=== PATIENT | male | born 1995 | race African-American/Black ===

== ENCOUNTER 2025-03-01 10:50 | Inpatient (IN) ==
[2025-03-01] MEDS ORDERED: KETAMINE HCL ONE (12:00)
[2025-03-01 13:09] VITALS: BMI 30.5
[2025-03-01 13:21] LABS: MEAN PLATELET VOLUME 9.8 fL (7.4-11.0); RED CELL DISTRIBUTION WIDTH 13.9 % (11.6-16.5)
[2025-03-01 13:22] LABS: BLOOD/HEMOGLOBIN,URINE 2+ (NEGATIVE); LEUKOCYTE ESTERASE ,URINE 1+ (NEGATIVE); NITRITES,URINE NEGATIVE (NEGATIVE)
[2025-03-01 13:36] LABS: CREATININE 1.10 mg/dL (0.70-1.30); eGFR NON BLACK RACES > 60 (>60)
[2025-03-01 13:36] LABS: APPEARANCE,URINE SLIGHTLY HAZY (CLEAR); SQUAMOUS EPITHELIAL CELL,UR RARE /HPF (NEGATIVE)
[2025-03-01] MEDS: OMNIPAQUE 350 mg/mL 100 mL BTL IVP NR (14:26)
--- NOTE | 2025-03-01 14:49 | CT ---
EXAM: CT MAXILLOFACIAL WITH IV CONTRAST HISTORY: jaw swelling x4 days, abcess; COMPARISON: None available TECHNIQUE: Axial CT images were obtained through the maxillofacial with IV contrast. Coronal and sagittal reformatted images were included. All CT scans at this facility use dose modulation, iterative reconstruction, and/or weight based dosing when appropriate to reduce radiation dose to as low as reasonably achievable. FINDINGS: In the midline and left pre mandibular subcutaneous soft tissues, there is a heterogeneous rim enhancing collection that measures approximately 3.8 x 1.5 cm with extensive surrounding soft tissue edema and enhancement. No soft tissue gas. No focal cortical destruction or aggressive periosteal reaction. No significant dental caries or periodontal disease. Small frontal sinus mucous retention cyst. Mild ethmoid sinus mucosal thickening. Intraorbital contents and visualized intracranial contents are unremarkable. Mastoid air cells are well-aerated. Major vascular structures in the visualized neck are normally opacified. Nonspecific symmetric cervical chain lymph nodes are likely reactive. IMPRESSION: Midline and left pre mandibular irregular heterogeneous 3.8 x 1.5 cm abscess with surrounding cellulitis. No soft tissue gas. THIS IS AN ELECTRONICALLY VERIFIED FINAL REPORT 03/01/2025 2:45 PM - Electronically signed by Dl Zavala MD
[2025-03-01] MEDS: NS 1,000 ML IV 1,000 ML IV SCH (15:00)
[2025-03-01] MEDS: INVanz INJ 1 GRAM VIAL 1 G in NS 100 ML IV 100 ML IV SCH (15:00)
[2025-03-01] MEDS: ULTRAM PO PRN (15:01)
[2025-03-01] MEDS: VANCOMYCIN IV *PREMIX 1.25 G/250 ML BAG 1.25 G/250 ML PIGGYBACK IV SCH (16:09)
[2025-03-01] MEDS: OMNIPAQUE 350 mg/mL 100 mL BTL 100 ML ONE (16:46)
[2025-03-01] MEDS: CONSULT PHARMACY - POTASSIUM & MAGNESIUM XX SCH (20:37)
[2025-03-01] MEDS: VANCOMYCIN IV *PREMIX 1 G/200 ML BAG 1 G/200 ML PIGGYBACK IV SCH (20:37)
[2025-03-02] MEDS: VANCOMYCIN IV *PREMIX 1.25 G/250 ML BAG 1.25 G/250 ML PIGGYBACK IV SCH (03:22)
[2025-03-02 04:51] LABS: MEAN PLATELET VOLUME 9.5 fL (7.4-11.0); RED CELL DISTRIBUTION WIDTH 13.7 % (11.6-16.5)
[2025-03-02 05:07] LABS: COR CA(FOR HYPOALB) 9.7 mg/dL (8.5-10.1); CREATININE 1.11 mg/dL (0.70-1.30); eGFR NON BLACK RACES > 60 (>60)
--- NOTE | 2025-03-02 08:28 | DR.H&P ---
H&P History & Physical for Day of: H&P Date: 03/01/25 Chief Complaint Chief Complaint: infected bump on chin History of Present Illness History of Present Illness: PT IS 20 BM, DIRECT ADMIT FROM FOR CELLULITIS WITH SUSPECTED ABSCESS FORMATION TO CHIN. PT WAS ON PO [facility]AMYCIN [facility]. PT REPORTS ONSET WAS PIMPLE ON CHIN FEW DAYS AGO. PT DENIES ANY PMH OF DM OR HTN. PT REPORTS NO HX OF MRSA. PT ADMITTED FOR EVALUATION AND TREATMET OF ACUTE ILLNESS Past Surgical History Surgical History: No History Social History Alcohol Use: None Drug Use: None Medications Home Medications: Home Medications Medication Instructions Recorded Confirmed Type clindamycin HCl 300 mg capsule 300 mg PO TID 03/01/25 03/01/25 History Allergies Allergies Allergy/AdvReac Type Severity Reaction Status Date / Time Penicillins Allergy Verified 03/01/25 13:11 Labs 03/02/25 04:36 03/02/25 04:36 Labs: 03/01/25 12:38 Face Wound Gram Stain - Final Laboratory WBC 12.4 X10^3/uL (3.6-10.0) H 03/02/25 04:36 RBC 4.93 X10^6/uL (4.7-6.0) 03/02/25 04:36 Hgb 14.6 g/dL (13.5-18.0) 03/02/25 04:36 Hct 43.0 % (42.0-54.0) 03/02/25 04:36 MCV 87.3 fL (80.0-100.0) 03/02/25 04:36 MCH 29.6 pg (27.0-34.0) 03/02/25 04:36 MCHC 33.9 g/dL (33.0-35.0) 03/02/25 04:36 RDW 13.7 % (11.6-16.5) 03/02/25 04:36 Plt Count 205 X10^3/uL (150.0-450.0) 03/02/25 04:36 MPV 9.5 fL (7.4-11.0) 03/02/25 04:36 Neut % (Auto) 72.9 % (42.0-75.0) 03/02/25 04:36 Lymph % (Auto) 13.5 % (21.0-51.0) L 03/02/25 04:36 [place] % (Auto) 12.6 % (0.0-13.0) 03/02/25 04:36 Eos % (Auto) 0.6 % (0.9-2.9) L 03/02/25 04:36 Baso % (Auto) 0.4 % (0.2-1.0) 03/02/25 04:36 Neut # (Auto) 9.0 x10^3/uL (2.2-4.8) H 03/02/25 04:36 Lymph # (Auto) 1.7 X10^3/uL (1.3-2.9) 03/02/25 04:36 [place] # (Auto) 1.6 x10^3/uL (0.3-0.8) H 03/02/25 04:36 Eos # (Auto) 0.1 x10^3/uL (0.0-0.2) 03/02/25 04:36 Baso # (Auto) 0.1 X10^3/uL (0.0-0.1) 03/02/25 04:36 Absolute Nucleated RBC 0.0 /100WBC 03/02/25 04:36 Sodium 136 mmol/L (136-145) 03/02/25 04:36 Corrected Sodium TNP 03/02/25 04:36 Potassium 4.2 mmol/L (3.5-5.1) 03/02/25 04:36 Chloride 101 mmol/L (98-107) 03/02/25 04:36 Carbon Dioxide 25.8 mmol/L (21-32) 03/02/25 04:36 BUN 10 mg/dL (7-18) 03/02/25 04:36 Creatinine 1.11 mg/dL (0.70-1.30) 03/02/25 04:36 Est GFR (MDRD) Af Amer > 60 (>60) 03/02/25 04:36 Est GFR (MDRD) Non-Af > 60 (>60) 03/02/25 04:36 Glucose 97 mg/dL (65-99) 03/02/25 04:36 Lactic Acid 0.9 mmol/L (0.4-2.0) 03/01/25 12:43 Calcium 8.8 mg/dL (8.5-10.1) 03/02/25 04:36 Corrected Calcium 9.7 mg/dL (8.5-10.1) 03/02/25 04:36 Total Bilirubin 0.80 mg/dL (0.2-1.0) 03/02/25 04:36 AST 17 Units/L (15-37) 03/02/25 04:36 ALT 21 Units/L (12-78) 03/02/25 04:36 Alkaline Phosphatase 56 Units/L (46-116) 03/02/25 04:36 Total Protein 7.5 g/dL (6.4-8.2) 03/02/25 04:36 Albumin 2.9 g/dL (3.4-5.0) L 03/02/25 04:36 Globulin 4.6 g/dL (2.5-4.5) H 03/02/25 04:36 Albumin/Globulin Ratio 0.6 Ratio (1.1-2.1) L 03/02/25 04:36 Specimen Type Clean catch urine 03/01/25 13:12 Urine Color Dark yellow (YELLOW) 03/01/25 13:12 Urine Appearance Slightly hazy (CLEAR) 03/01/25 13:12 Urine pH 6.0 (5.0 - 8.0) 03/01/25 13:12 Ur Specific [place] 1.020 (1.000-1.030) 03/01/25 13:12 Urine Protein 2+ (NEGATIVE) 03/01/25 13:12 Urine Glucose (UA) Negative (NEGATIVE) 03/01/25 13:12 Urine Ketones 4+ (NEGATIVE) 03/01/25 13:12 Urine Blood 2+ (NEGATIVE) 03/01/25 13:12 Urine Nitrite Negative (NEGATIVE) 03/01/25 13:12 Urine Bilirubin 1+ (NEGATIVE) 03/01/25 13:12 Urine Urobilinogen 3+ (NORMAL) 03/01/25 13:12 Ur Leukocyte Esterase 1+ (NEGATIVE) 03/01/25 13:12 Urine RBC 0-2 /HPF (0-3) 03/01/25 13:12 Urine WBC 3-5 /HPF (0-5) 03/01/25 13:12 Ur Squamous Epith Cells Rare /HPF (NEGATIVE) 03/01/25 13:12 Urine Bacteria Trace /HPF (NEGATIVE) 03/01/25 13:12 Urine Mucus Moderate /HPF (NEGATIVE) 03/01/25 13:12 Ur Culture Indicated? No/not indicated 03/01/25 13:12 Review of Systems Constitutional: No Symptoms Reported Eyes: No Symptoms Reported ENT: Mouth Swelling (LOWER LIP) and Other Respiratory: No Symptoms Reported Cardiovascular: No Symptoms Reported Gastrointestinal: No Symptoms Reported Genitourinary: No Symptoms Reported Musculoskeletal: No Symptoms Reported Skin: Wound Neurological: No Symptoms Reported Physical Exam Vital Signs: Vital Signs Temperature 98.7 F Temperature 98.6 F Pulse Rate [Right Brachial] 94 Pulse Rate [Right Brachial] 90 Respiratory Rate 17 Respiratory Rate 18 Blood Pressure [Right Arm] 133/71 Blood Pressure [Right Arm] 126/64 O2 Sat by Pulse Oximetry 97 O2 Sat by Pulse Oximetry 96 Oriented: Normal Eyes: Normal Ear: Normal Nose: Normal Throat: Normal Respiratory: Clear Throughout Cardiovascular: Normal Auscultation: Bowel Sounds: Normal Palpation: Normal Tenderness: Normal Skin: Red, Tender, Wound (CHIN, THICK PURULENT DC) and Other Musculoskeletal: Normal Psychiatric: Normal Mood Description: Calm Affect: Normal Speech Pattern: Clear and Appropriate Assessment/Plan (1) Facial cellulitis: Status: Acute Plan: ADMIT, CT FACE ON ADMISSION IV ATBX, WOUND CARE WOUND CULTURE, VERIFY HOME MEDICATIONS (2) Abscess or cellulitis of chin: Status: Acute
--- NOTE | 2025-03-02 08:31 | PCM.PROG ---
Progress Note Progress Note for Day of Date of Exam: 03/02/25 Subjective Subjective: PT IS 30 BM, ADMITTED WITH CELLULITIS TO HIS CHIN WITH DIFFUSE REDNESS AND SWELLING. FAILED OUTPT TREATMENT WIT CLINDAMYCIN. ABSCESS CONFIRMED WITH CT ON ADMISSION. CULTURES OBTAINED ON ADMISSION. PT IS CURRENTLY ON VANCO AND ERTAPENEM. PT IS AFEBRILE AND BP STABLE. PT CO PAIN TO AREA NOT CONTROLLED WITH TRAMADOL. PT REPORTS HE CANNOT OPEN HIS MOUTH DUE TO PAIN TO CHIN LOWER JAW. SURGICAL CONSULT FOR I&OS. SLIGHT IMPROVING SWELLING SINCE ADMISSION WITH THICK PURULENT DC. Past Medical Family Social History Allergies: Allergies Penicillins Allergy (Verified 03/01/25 13:11) Vital Signs and I&O's Vital Signs: Vital Signs Temperature 98.7 F Temperature 98.6 F Pulse Rate [Right Brachial] 94 Pulse Rate [Right Brachial] 90 Respiratory Rate 17 Respiratory Rate 18 Blood Pressure [Right Arm] 133/71 Blood Pressure [Right Arm] 126/64 O2 Sat by Pulse Oximetry 97 O2 Sat by Pulse Oximetry 96 Intake and Output: Intake & Output 02/27/25 02/28/25 03/01/25 03/02/25 11:59 11:59 11:59 11:59 Intake Total 1813 / 1813 Output Total 1050 / 1050 Balance 763 / 763 Physical Exam Oriented: Normal Eyes: Normal Ear: Normal Nose: Normal Throat: Normal Respiratory: Normal Cardiovascular: Normal Auscultation: Bowel Sounds: Normal Tenderness: Normal Skin: Red, Tender, Wound (CHIN, THICK PURULENT DC) and Other Musculoskeletal: Normal Psychiatric: Normal Mood Description: Calm Affect: Normal Speech Pattern: Clear and Appropriate Laboratory and Diagnostics 03/02/25 04:36 03/02/25 04:36 Labs: 03/01/25 12:38 Face Wound Gram Stain - Final Laboratory WBC 12.4 X10^3/uL (3.6-10.0) H 03/02/25 04:36 RBC 4.93 X10^6/uL (4.7-6.0) 03/02/25 04:36 Hgb 14.6 g/dL (13.5-18.0) 03/02/25 04:36 Hct 43.0 % (42.0-54.0) 03/02/25 04:36 MCV 87.3 fL (80.0-100.0) 03/02/25 04:36 MCH 29.6 pg (27.0-34.0) 03/02/25 04:36 MCHC 33.9 g/dL (33.0-35.0) 03/02/25 04:36 RDW 13.7 % (11.6-16.5) 03/02/25 04:36 Plt Count 205 X10^3/uL (150.0-450.0) 03/02/25 04:36 MPV 9.5 fL (7.4-11.0) 03/02/25 04:36 Neut % (Auto) 72.9 % (42.0-75.0) 03/02/25 04:36 Lymph % (Auto) 13.5 % (21.0-51.0) L 03/02/25 04:36 [place] % (Auto) 12.6 % (0.0-13.0) 03/02/25 04:36 Eos % (Auto) 0.6 % (0.9-2.9) L 03/02/25 04:36 Baso % (Auto) 0.4 % (0.2-1.0) 03/02/25 04:36 Neut # (Auto) 9.0 x10^3/uL (2.2-4.8) H 03/02/25 04:36 Lymph # (Auto) 1.7 X10^3/uL (1.3-2.9) 03/02/25 04:36 [place] # (Auto) 1.6 x10^3/uL (0.3-0.8) H 03/02/25 04:36 Eos # (Auto) 0.1 x10^3/uL (0.0-0.2) 03/02/25 04:36 Baso # (Auto) 0.1 X10^3/uL (0.0-0.1) 03/02/25 04:36 Absolute Nucleated RBC 0.0 /100WBC 03/02/25 04:36 Sodium 136 mmol/L (136-145) 03/02/25 04:36 Corrected Sodium TNP 03/02/25 04:36 Potassium 4.2 mmol/L (3.5-5.1) 03/02/25 04:36 Chloride 101 mmol/L (98-107) 03/02/25 04:36 Carbon Dioxide 25.8 mmol/L (21-32) 03/02/25 04:36 BUN 10 mg/dL (7-18) 03/02/25 04:36 Creatinine 1.11 mg/dL (0.70-1.30) 03/02/25 04:36 Est GFR (MDRD) Af Amer > 60 (>60) 03/02/25 04:36 Est GFR (MDRD) Non-Af > 60 (>60) 03/02/25 04:36 Glucose 97 mg/dL (65-99) 03/02/25 04:36 Lactic Acid 0.9 mmol/L (0.4-2.0) 03/01/25 12:43 Calcium 8.8 mg/dL (8.5-10.1) 03/02/25 04:36 Corrected Calcium 9.7 mg/dL (8.5-10.1) 03/02/25 04:36 Total Bilirubin 0.80 mg/dL (0.2-1.0) 03/02/25 04:36 AST 17 Units/L (15-37) 03/02/25 04:36 ALT 21 Units/L (12-78) 03/02/25 04:36 Alkaline Phosphatase 56 Units/L (46-116) 03/02/25 04:36 Total Protein 7.5 g/dL (6.4-8.2) 03/02/25 04:36 Albumin 2.9 g/dL (3.4-5.0) L 03/02/25 04:36 Globulin 4.6 g/dL (2.5-4.5) H 03/02/25 04:36 Albumin/Globulin Ratio 0.6 Ratio (1.1-2.1) L 03/02/25 04:36 Specimen Type Clean catch urine 03/01/25 13:12 Urine Color Dark yellow (YELLOW) 03/01/25 13:12 Urine Appearance Slightly hazy (CLEAR) 03/01/25 13:12 Urine pH 6.0 (5.0 - 8.0) 03/01/25 13:12 Ur Specific [place] 1.020 (1.000-1.030) 03/01/25 13:12 Urine Protein 2+ (NEGATIVE) 03/01/25 13:12 Urine Glucose (UA) Negative (NEGATIVE) 03/01/25 13:12 Urine Ketones 4+ (NEGATIVE) 03/01/25 13:12 Urine Blood 2+ (NEGATIVE) 03/01/25 13:12 Urine Nitrite Negative (NEGATIVE) 03/01/25 13:12 Urine Bilirubin 1+ (NEGATIVE) 03/01/25 13:12 Urine Urobilinogen 3+ (NORMAL) 03/01/25 13:12 Ur Leukocyte Esterase 1+ (NEGATIVE) 03/01/25 13:12 Urine RBC 0-2 /HPF (0-3) 03/01/25 13:12 Urine WBC 3-5 /HPF (0-5) 03/01/25 13:12 Ur Squamous Epith Cells Rare /HPF (NEGATIVE) 03/01/25 13:12 Urine Bacteria Trace /HPF (NEGATIVE) 03/01/25 13:12 Urine Mucus Moderate /HPF (NEGATIVE) 03/01/25 13:12 Ur Culture Indicated? No/not indicated 03/01/25 13:12 Plan (1) Facial cellulitis: Status: Acute Plan: CT FACE ON ADMISSION, SURGICAL CONSULT IV ATBX, WOUND CARE WOUND CULTURE, VERIFY HOME MEDICATIONS (2) Abscess or cellulitis of chin: Status: Acute
[2025-03-02] MEDS: TORADOL 30 MG VIAL IVP PRN (08:49)
[2025-03-02] MEDS ORDERED: NORCO 7.5/325 MG TAB ONE (13:02)
[2025-03-02] MEDS: NORCO 7.5/325 MG TAB PO ONE (13:04)
[2025-03-02] MEDS: VERSED ONE (13:30)
[2025-03-02] MEDS: FENTANYL VIAL INJ 100 mcg ONE (13:30)
[2025-03-02] MEDS: DIPRIVAN VIAL 20 ML ONE (13:31)
[2025-03-02] MEDS: REGLAN INJ 10 MG VIAL ONE (13:31)
[2025-03-02] MEDS: ZOFRAN INJ 4 MG VIAL ONE (13:31)
[2025-03-02] MEDS: PRECEDEX INJ VIAL ONE (13:35)
[2025-03-02] MEDS: NS 100 ML IV 100 ML ONE (13:54)
[2025-03-02] MEDS: ANCEF VIAL 1 GRAM ONE (13:54)
[2025-03-02] MEDS: VERSED IVP PRN (13:59)
[2025-03-02] MEDS: PEPCID 20 MG VIAL IVP PRN (14:00)
[2025-03-02] MEDS: ZOFRAN INJ 4 MG VIAL IVP PRN (14:00)
[2025-03-02] MEDS: REGLAN INJ 10 MG VIAL IVP PRN (14:00)
[2025-03-02] MEDS: D5 LR IV PRN (14:00)
[2025-03-02] MEDS: PEPCID 20 MG VIAL ONE (14:02)
[2025-03-02] MEDS: LR 1,000 ML IV 1,000 ML IV ONE (14:02)
[2025-03-02] MEDS: BETADINE SOLN ONE (14:15)
[2025-03-02] MEDS: ANCEF VIAL 1 GRAM IV PRN (14:15)
[2025-03-02] MEDS: FENTANYL VIAL INJ 100 mcg IVP PRN (14:16)
[2025-03-02] MEDS: XYLOCAINE 2 % (PLAIN) IVP PRN (14:17)
[2025-03-02] MEDS: DIPRIVAN VIAL 50 ML IVP PRN (14:18)
[2025-03-02] MEDS: KETAMINE HCL IV PRN (14:18)
[2025-03-02] MEDS: MARCAINE 0.5% ONE (14:24)
[2025-03-02] MEDS: POLYMYXIN B SULFATE ONE (14:24)
[2025-03-02] MEDS: PHARMACY COMMENT IV NR (20:30)
[2025-03-03] MEDS: ULTRAM PO PRN (00:02)
[2025-03-03 05:00] LABS: MEAN PLATELET VOLUME 9.4 fL (7.4-11.0); RED CELL DISTRIBUTION WIDTH 13.6 % (11.6-16.5)
[2025-03-03 05:10] LABS: COR CA(FOR HYPOALB) 9.5 mg/dL (8.5-10.1); CREATININE 1.00 mg/dL (0.70-1.30); eGFR NON BLACK RACES > 60 (>60)
[2025-03-03] MEDS: NYSTATIN SUSP PO SCH (10:34)
--- NOTE | 2025-03-03 11:14 | DR.PROGNOT ---
HOSPITAL PROGRESS NOTE Progress Note for Day of: Progress Note Date: 03/03/25 Chief Complaint Chief Complaint: Patient is status post incision and drainage of facial abscess, final culture report is showing MRSA infection. Patient is on vancomycin already. Good improvement of the swelling and pain. Dressing was changed and repacked with iodoform packing. CBC and the rest of his lab work is normal. Vancomycin level is therapeutic. The rest of physical exam is the same as before. Past Medical Family Social History Allergies: Allergies Penicillins Allergy (Verified 03/01/25 13:11) Vital Signs Vital Signs: Vital Signs Temperature 97.1 F Temperature 98.6 F Pulse Rate [Right Brachial] 72 Pulse Rate [Right Brachial] 78 Respiratory Rate 18 Respiratory Rate 18 Blood Pressure [Right Arm] 102/58 Blood Pressure [Right Arm] 115/67 O2 Sat by Pulse Oximetry 98 O2 Sat by Pulse Oximetry 98 Physical Exam Oriented: Normal Eyes: Normal Ear: Normal Nose: Normal Throat: Normal Respiratory: Normal Cardiovascular: Normal GI:Auscultation: Normal GI:Palpation: Normal GI: Tenderness: Normal Skin: Red, Tender, Wound (CHIN, THICK PURULENT DC) and Other Musculoskeletal: Normal Psychiatric: Normal Mood Description: Calm Affect: Normal Speech Pattern: Clear Laboratory and Diagnostics 03/03/25 04:28 03/03/25 04:28 Labs: 03/01/25 12:38 Face Wound Gram Stain - Final 03/01/25 12:38 Face Wound Culture - Preliminary Methicillin Resis Staph Aureus Laboratory WBC 7.0 X10^3/uL (3.6-10.0) 03/03/25 04:28 RBC 4.95 X10^6/uL (4.7-6.0) 03/03/25 04:28 Hgb 14.5 g/dL (13.5-18.0) 03/03/25 04:28 Hct 43.4 % (42.0-54.0) 03/03/25 04:28 MCV 87.8 fL (80.0-100.0) 03/03/25 04:28 MCH 29.3 pg (27.0-34.0) 03/03/25 04:28 MCHC 33.4 g/dL (33.0-35.0) 03/03/25 04:28 RDW 13.6 % (11.6-16.5) 03/03/25 04:28 Plt Count 213 X10^3/uL (150.0-450.0) 03/03/25 04:28 MPV 9.4 fL (7.4-11.0) 03/03/25 04:28 Neut % (Auto) 62.1 % (42.0-75.0) 03/03/25 04:28 Lymph % (Auto) 24.0 % (21.0-51.0) 03/03/25 04:28 [place] % (Auto) 10.6 % (0.0-13.0) 03/03/25 04:28 Eos % (Auto) 2.5 % (0.9-2.9) 03/03/25 04:28 Baso % (Auto) 0.8 % (0.2-1.0) 03/03/25 04:28 Neut # (Auto) 4.3 x10^3/uL (2.2-4.8) 03/03/25 04:28 Lymph # (Auto) 1.7 X10^3/uL (1.3-2.9) 03/03/25 04:28 [place] # (Auto) 0.7 x10^3/uL (0.3-0.8) 03/03/25 04:28 Eos # (Auto) 0.2 x10^3/uL (0.0-0.2) 03/03/25 04:28 Baso # (Auto) 0.1 X10^3/uL (0.0-0.1) 03/03/25 04:28 Absolute Nucleated RBC 0.2 /100WBC 03/03/25 04:28 Sodium 139 mmol/L (136-145) 03/03/25 04:28 Corrected Sodium TNP 03/03/25 04:28 Potassium 4.4 mmol/L (3.5-5.1) 03/03/25 04:28 Chloride 104 mmol/L (98-107) 03/03/25 04:28 Carbon Dioxide 28.9 mmol/L (21-32) 03/03/25 04:28 BUN 13 mg/dL (7-18) 03/03/25 04:28 Creatinine 1.00 mg/dL (0.70-1.30) 03/03/25 04:28 Est GFR (MDRD) Af Amer > 60 (>60) 03/03/25 04:28 Est GFR (MDRD) Non-Af > 60 (>60) 03/03/25 04:28 Glucose 96 mg/dL (65-99) 03/03/25 04:28 Lactic Acid 0.9 mmol/L (0.4-2.0) 03/01/25 12:43 Calcium 8.5 mg/dL (8.5-10.1) 03/03/25 04:28 Corrected Calcium 9.5 mg/dL (8.5-10.1) 03/03/25 04:28 Magnesium 2.0 mg/dL (2.0-2.9) 03/03/25 04:28 Total Bilirubin 0.30 mg/dL (0.2-1.0) 03/03/25 04:28 AST 19 Units/L (15-37) 03/03/25 04:28 ALT 24 Units/L (12-78) 03/03/25 04:28 Alkaline Phosphatase 50 Units/L (46-116) 03/03/25 04:28 Total Protein 7.0 g/dL (6.4-8.2) 03/03/25 04:28 Albumin 2.7 g/dL (3.4-5.0) L 03/03/25 04:28 Globulin 4.3 g/dL (2.5-4.5) 03/03/25 04:28 Albumin/Globulin Ratio 0.6 Ratio (1.1-2.1) L 03/03/25 04:28 Specimen Type Clean catch urine 03/01/25 13:12 Urine Color Dark yellow (YELLOW) 03/01/25 13:12 Urine Appearance Slightly hazy (CLEAR) 03/01/25 13:12 Urine pH 6.0 (5.0 - 8.0) 03/01/25 13:12 Ur Specific [place] 1.020 (1.000-1.030) 03/01/25 13:12 Urine Protein 2+ (NEGATIVE) 03/01/25 13:12 Urine Glucose (UA) Negative (NEGATIVE) 03/01/25 13:12 Urine Ketones 4+ (NEGATIVE) 03/01/25 13:12 Urine Blood 2+ (NEGATIVE) 03/01/25 13:12 Urine Nitrite Negative (NEGATIVE) 03/01/25 13:12 Urine Bilirubin 1+ (NEGATIVE) 03/01/25 13:12 Urine Urobilinogen 3+ (NORMAL) 03/01/25 13:12 Ur Leukocyte Esterase 1+ (NEGATIVE) 03/01/25 13:12 Urine RBC 0-2 /HPF (0-3) 03/01/25 13:12 Urine WBC 3-5 /HPF (0-5) 03/01/25 13:12 Ur Squamous Epith Cells Rare /HPF (NEGATIVE) 03/01/25 13:12 Urine Bacteria Trace /HPF (NEGATIVE) 03/01/25 13:12 Urine Mucus Moderate /HPF (NEGATIVE) 03/01/25 13:12 Ur Culture Indicated? No/not indicated 03/01/25 13:12 Random Vancomycin 17.7 ug/mL 03/02/25 20:31 Assessment and Plan 1: MRSA infection with facial abscess involving the lower lip and chin area, status post I&D. To continue local care and IV antibiotics. Will follow in 10 days as outpatient.
[2025-03-04 04:53] LABS: MEAN PLATELET VOLUME 8.9 fL (7.4-11.0); RED CELL DISTRIBUTION WIDTH 13.3 % (11.6-16.5)
[2025-03-04 05:01] LABS: COR CA(FOR HYPOALB) 9.6 mg/dL (8.5-10.1); CREATININE 1.00 mg/dL (0.70-1.30); eGFR NON BLACK RACES > 60 (>60)
[2025-03-04] MEDS ORDERED: CONSULT PHARMACY - POTASSIUM & MAGNESIUM XX SCH (07:00)
[2025-03-04 08:32] VITALS: BP 125/58; PULSE 74; RESP 20; TEMP 98.1; O2SAT 99
[2025-03-04] MEDS: K-DUR TAB 20 MEQ PO SCH (10:48)
== END 2025-03-04 11:00 | DRG 603 ==
LOC: MED/SURG 12:00
PROVIDERS: ADMIT Internal Medicine; ATTEND Internal Medicine
DX: D72.828 Other elevated white blood cell count; L03.211 Cellulitis of face; Z16.12 Extended spectrum beta lactamase (ESBL) resistance; B95.62 Methicillin resistant Staphylococcus aureus infection as the cause of diseases classified elsewhere; R59.0 Localized enlarged lymph nodes; R79.89 Other specified abnormal findings of blood chemistry; L02.01 Cutaneous abscess of face